=== PATIENT | male | born 1935 | race African-American/Black ===

== ENCOUNTER 2017-07-03 10:44 | Emergency (ER) | payer MEDICARE ==
[~2017-07-03] VITALS: Ht 172.7 cm; Wt 70.0 kg
[~2017-07-03 10:44] MED LIST: DOESN'T KNOW MEDS; FLEXERIL5 MG PO; LISINOP/HCTZ1 TA1 PO; NAPROSYN375 MG PO; PRAVASTATIN40 MG PO; RAPAFLO8 MG PO
[2017-07-03] MEDS ORDERED: FUROSEMIDE40 MG PO (11:03)
[2017-07-03] MEDS ORDERED: LISINOPRIL10 MG PO (11:03)
[2017-07-03] MEDS ORDERED: DONEPEZIL5 MG PO (11:03)
[2017-07-03] MEDS ORDERED: SPIRONOLACTONE25 MG PO (11:04)
[2017-07-03] MEDS ORDERED: RISPERIDONE2 MG PO (11:04)
[2017-07-03] MEDS ORDERED: TRAZODONE50 MG PO (11:05)
[2017-07-03 11:25] LABS: URINE BILIRUBIN - DIPSTICK NEGATIVE (NEGATIVE); URINE BLOOD DIPSTICK MODERATE (NEGATIVE); URINE COLOR YELLOW; URINE GLUCOSE - DIPSTICK NEGATIVE (NEGATIVE); URINE KETONE NEGATIVE (NEGATIVE); URINE LEUK ESTERASE NEGATIVE (NEGATIVE); URINE NITRITE - DIPSTICK NEGATIVE (Negative); URINE PROTEIN - DIPSTICK NEGATIVE (NEG-TRACE); URINE SPECIFIC GRAVITY 1.025; URINE UROBILINOGEN - DIPSTICK 0.2 E.U./dL (0.2)
[2017-07-03 11:35] LABS: URINE CLARITY SLIGHT CLOUDY
[2017-07-03 11:40] LABS: ALBUMIN 4.2 g/dL (3.2-5.0); ALKALINE PHOSPHATASE 64 u/l (38-126); AMYLASE 86 u/l (30-110); ANION GAP 13 (6-22 (CALC)); BUN 11 mg/dL (8-23); BUN/CREATININE RATIO 14 (12-20 (CALC)); CALCIUM 9.5 mg/dL (8.4-10.2); CARBON DIOXIDE 27 mmol/l (22-30); CHLORIDE 106 mmol/l (95-108); CREATININE 0.8 mg/dL (0.7-1.3); GFR > 60 ML/MIN (>=60 (CALC)); GFR FOR AFR.AMER. > 60 ML/MIN (>=60 (CALC)); GLUCOSE 101 mg/dL (82-115); LIPASE 31 u/l (23-300); POTASSIUM 4.4 mmol/l (3.5-5.1); SGOT/AST 29 u/l (19-48); SGPT/ALT 21 u/l (11-66); SODIUM 141 mmol/l (137-146); TOTAL PROTEIN 7.9 g/dL (6.3-8.2)
[2017-07-03 11:49] LABS: MYOGLOBIN 40 ng/mL (0 - 121)
[2017-07-03 12:13] LABS: HEMATOCRIT 35.3 % (39.0-50.0); HEMOGLOBIN 11.8 g/dl (14.0-18.0); IMMATURE GRANULOCYTES 0.4 % (0.0-1.0); MEAN CELL VOLUME 99.7 fL CALC (80.0-100.0); MEAN CORPUSCULAR HGB 33.3 pG CALC (26.0-32.0); MEAN CORPUSCULAR HGB CONC 33.4 g/L CALC (32.0-36.0); NEUT# 3.8 thou/uL (1.82-7.42); RED BLOOD COUNT 3.54 mill/uL (4.70-6.10); RED CELL DISTRI WIDTH 12.9 % (11.5-15.5)
[2017-07-03 12:34] VITALS: BP 163/80
== END 2017-07-03 12:53 | disposition home or self-care (01) ==
LOC: ED 10:44
PROVIDERS: Emergency Medicine
DX: K40.90 Unilateral inguinal hernia, without obstruction or gangrene, not specified as recurrent (principal); R00.1 Bradycardia, unspecified; R10.32 Left lower quadrant pain; I10 Essential (primary) hypertension

== ENCOUNTER 2017-07-09 17:44 | Emergency (ER) | payer MEDICARE ==
[~2017-07-09] VITALS: Ht 172.7 cm; Wt 80.0 kg
[~2017-07-09 17:44] MED LIST changes: +DONEPEZIL5 MG PO; +FUROSEMIDE40 MG PO; +LISINOPRIL10 MG PO; +RISPERIDONE2 MG PO; +SPIRONOLACTONE25 MG PO; +TRAZODONE50 MG PO
[2017-07-09 18:51] VITALS: BP 175/98
== END 2017-07-09 18:52 | disposition home or self-care (01) ==
LOC: ED 17:44
DX: K40.90 Unilateral inguinal hernia, without obstruction or gangrene, not specified as recurrent (principal); I10 Essential (primary) hypertension

== ENCOUNTER 2017-08-19 16:59 | Emergency (ER) | payer MEDICARE ==
[~2017-08-19] VITALS: Ht 172.7 cm; Wt 69.0 kg
[2017-08-19 17:34] VITALS: BP 137/68
== END 2017-08-19 17:42 | disposition home or self-care (01) ==
LOC: ED 16:59
DX: K40.90 Unilateral inguinal hernia, without obstruction or gangrene, not specified as recurrent (principal)